=== PATIENT | male | born 1955 | race Caucasian/White ===

== ENCOUNTER 2017-03-18 23:55 | Observation (INO) | payer OTHER ==
--- NOTE | 2017-03-19 00:11 | CPEKG ---
Heart Rate: 117 RR Interval: 513 P-R Interval: 188 QRSD Interval: 100 QT Interval: 292 QTC Interval: 408 P Richmond: 79 QRS Richmond: 48 T Wave Richmond: 52 EKG Severity - ABNORMAL ECG - EKG Impression: SINUS TACHYCARDIA EKG Impression: RIGHT ATRIAL ABNORMALITY EKG Impression: CONSIDER RIGHT VENTRICULAR HYPERTROPHY Electronically Signed By: Enma Miller 19-Mar-2017 08:03:58
[2017-03-19] MEDS ORDERED: ONDANSETRON 4 MG/2 ML VIAL IVP ONE (00:15)
[2017-03-19] MEDS ORDERED: ONDANSETRON 4 MG/2 ML VIAL ONE (00:15)
[2017-03-19] MEDS ORDERED: NITROGLYCERIN 0.4 MG BTL SL ONE (00:26)
[2017-03-19] MEDS ORDERED: ASPIRIN 81 MG CHEWABLE TAB ONE (00:27)
[2017-03-19] MEDS ORDERED: NS 500 ML IV ONE (00:27)
[2017-03-19] MEDS ORDERED: ASPIRIN 81 MG CHEWABLE TAB PO ONE (00:27)
--- NOTE | 2017-03-19 00:31 | EDPHY ---
H & P Stated Complaint: c/o cp/n/sob x 2 hrs Time Seen by Provider: 03/19/17 00:15 HPI/ROS: HPI The patient presents with chest pain which began about 2 hours ago while watching television suddenly. The pain feels like a "hot burning coal" is sitting on his left chest. It has been constant ever since. He feels short of breath. He feels lightheaded when he stands. He has had several episodes of vomiting. He initially thought the pain was indigestion, however it became more severe and he became concerned. He does suffer from chronic pain of his lumbar spine. He is followed by a pain specialist, he has not any changes in his pain medication. He has been able to take all of it. REVIEW OF SYSTEMS Constitutional: No fever, no chills. Eyes: No discharge. ENT: No sore throat. Cardiovascular: Positive for chest pain, no palpitations. Respiratory: No cough, no shortness of breath. Gastrointestinal: No abdominal pain, no vomiting. Genitourinary: No hematuria. Musculoskeletal: No back pain. Skin: No rashes. Neurological: No headache. PMHx: History of SVT on verapamil, hypertension, history of intractable pain from lower back injury Soc Hx: Lives at home with his , no alcohol or drug use PHYSICAL General Appearance: Alert, uncomfortable appearing Eyes: Pupils equal and round no pallor or injection ENT, Mouth: Mucous membranes moist Respiratory: There are no retractions, lungs are clear to auscultation Cardiovascular: Tachycardic rate with regular rhythm Gastrointestinal: Abdomen is soft and non-tender, no masses, bowel sounds normal Neurological: A&O, moves all extremities Skin: Warm and dry, no rashes Musculoskeletal: Neck is supple non tender Extremities: symmetrical, full range of motion Psychiatric: Patient is oriented X 3, there is no agitation Source: Patient Exam Limitations: No limitations - Personal History Tetanus Vaccine Date: unsure - Medical/Surgical History Hx Asthma: No Hx Chronic Respiratory Disease: No Hx Diabetes: No Hx Cardiac Disease: Yes Hx Renal Disease: No Hx Cirrhosis: No Hx Alcoholism: No Hx HIV/AIDS: No Hx Splenectomy or Spleen Trauma: No Other PMH: HTN, back surgery, chronic lumbar spine disease, history of SVT, emphysema - Social History Smoking Status: Former smoker Constitutional: Initial Vital Signs Temperature (C) 37 C 03/18/17 23:59 Heart Rate 130 H 03/18/17 23:59 Respiratory Rate 20 03/18/17 23:59 Blood Pressure 180/117 H 03/18/17 23:59 O2 Sat (%) 98 03/18/17 23:59 O2 Delivery Mode Room Air Allergies/Adverse Reactions: No Known Allergies Allergy (Verified 03/19/17 00:01) Home Medications: Medication Instructions Recorded Carisoprodol [SOMA] 350 mg PO TID 01/16/11 Diazepam [Valium] 20 mg PO BID 01/16/11 Benazepril HCl [Lotensin (*)] 20 mg PO HS 01/10/14 HYDROcodone/APAP 10325 [[place] 2 tab PO TID 01/10/14 10325 (*)] Lubiprostone [Amitiza 24 mcg (*)] 24 mcg PO BID 01/10/14 Meloxicam [Mobic 15 mg] 15 mg PO DAILY 01/10/14 Nortriptyline HCl [Pamelor 25 mg 50 mg PO HS 01/10/14 (*)] Verapamil HCl [Verelan Pm] 300 mg PO HS 01/10/14 amLODIPine BESYLATE [Norvasc 10 mg 10 mg PO DAILY 01/10/14 (*)] morphINE SR [Ms Contin/Oramorph 100 mg PO TID 01/10/14 100 mg (*)] Medical Decision Making - Diagnostics EKG Interpretation: EKG: Complete interpretation has been separately recorded in the [facility] archive. Summary impression: Sinus tachycardia, rate 117, normal axis, no ST segment elevation Imaging Results: Imaging Impressions Chest X-Ray 03/19/17 00:27 Impression: Nothing acute identified. Differential Diagnosis: This is a 61-year-old man with hypertension and history of SVT who presents with 2 hours of chest pain which began at rest associated with shortness of breath, vomiting, dizziness. On exam, he is tachycardic and hypertensive, somewhat uncomfortable appearing Differential diagnosis includes ACS, PE, aortic dissection, GERD. In the emergency room, the patient was given nitroglycerin sublingually with improvement and chest pain. Labs were checked including troponin and D-dimer and were unremarkable, given his persistent hypertension, CT scan of his chest was performed. This was to evaluate for PE or aortic dissection. This was negative. Given the severity of his symptoms and his persistent tachycardia and hypertension, I plan to admit him to the hospitalist service. I will also order him metoprolol for blood pressure and heart rate control. I discussed the case with the hospitalist Dr. Way who will admit the patient. - Data Points Laboratory Results: Laboratory Results 03/19/17 00:08 03/19/17 00:08 03/19/17 03/19/17 03/19/17 00:27 00:27 00:08 WBC RBC Hgb Hct MCV MCH MCHC RDW Plt Count MPV Neut % (Auto) Lymph % (Auto) Bucks % (Auto) Eos % (Auto) Baso % (Auto) Nucleat RBC Rel Count Absolute Neuts (auto) Absolute Lymphs (auto) Absolute Monos (auto) Absolute Eos (auto) Absolute Basos (auto) Absolute Nucleated RBC Immature Gran % Immature Gran # PT INR D-Dimer Cancelled Sodium Potassium Chloride Carbon Dioxide Anion Gap BUN Creatinine Estimated GFR Glucose Hemoglobin A1c Pending Estim Average Glucose Pending Calcium Phosphorus Troponin I NT-Pro-B Natriuret Pep Cancelled 03/19/17 03/19/17 03/19/17 00:08 00:08 00:08 WBC 14.62 10^3/uL H 10^3/uL (3.80-9.50) RBC 5.27 10^6/uL 10^6/uL (4.40-6.38) Hgb 15.9 g/dL g/dL (13.7-17.5) Hct 45.6 % % (40.0-51.0) MCV 86.5 fL fL (81.5-99.8) MCH 30.2 pg pg (27.9-34.1) MCHC 34.9 g/dL g/dL (32.4-36.7) RDW 13.0 % % (11.5-15.2) Plt Count 417 10^3/uL H 10^3/uL (150-400) MPV 9.2 fL fL (8.7-11.7) Neut % (Auto) 68.4 % % (39.3-74.2) Lymph % (Auto) 22.2 % % (15.0-45.0) Bucks % (Auto) 6.8 % % (4.5-13.0) Eos % (Auto) 1.8 % % (0.6-7.6) Baso % (Auto) 0.5 % % (0.3-1.7) Nucleat RBC Rel Count 0.0 % % (0.0-0.2) Absolute Neuts (auto) 9.99 10^3/uL H 10^3/uL (1.70-6.50) Absolute Lymphs (auto) 3.25 10^3/uL H 10^3/uL (1.00-3.00) Absolute Monos (auto) 0.99 10^3/uL H 10^3/uL (0.30-0.80) Absolute Eos (auto) 0.27 10^3/uL 10^3/uL (0.03-0.40) Absolute Basos (auto) 0.07 10^3/uL 10^3/uL (0.02-0.10) Absolute Nucleated RBC 0.00 10^3/uL 10^3/uL (0-0.01) Immature Gran % 0.3 % % (0.0-1.1) Immature Gran # 0.05 10^3/uL 10^3/uL (0.00-0.10) PT 12.4 SEC SEC (12.0-15.0) INR 0.93 (0.83-1.16) D-Dimer 0.44 ug/mLFEU ug/mLFEU (0.00-0.50) Sodium 141 mEq/L mEq/L (134-144) Potassium 3.6 mEq/L mEq/L (3.5-5.2) Chloride 101 mEq/L mEq/L (97-110) Carbon Dioxide 23 mEq/l mEq/l (22-31) Anion Gap 17 mEq/L H mEq/L (8-16) BUN 18 mg/dL mg/dL (7-23) Creatinine 1.2 mg/dL mg/dL (0.7-1.3) Estimated GFR > 60 Glucose 158 mg/dL H mg/dL (70-100) Hemoglobin A1c Estim Average Glucose Calcium 10.7 mg/dL H mg/dL (8.5-10.4) Phosphorus 3.4 mg/dL mg/dL (2.5-4.5) Troponin I < 0.012 ng/mL ng/mL (0-0.034) NT-Pro-B Natriuret Pep 77 pg/mL pg/mL (0-125) Medications Given: Discontinued Medications Al Hydroxide/Mg Hydroxide (Maalox Susp) 30 ml PO EDNOW ONE Stop: 03/19/17 02:29 Last Admin: 03/19/17 02:41 Dose: 30 ml Aspirin (Aspirin) 324 mg PO EDNOW ONE Stop: 03/19/17 00:28 Last Admin: 03/19/17 00:33 Dose: 324 mg Hydromorphone HCl (Dilaudid) 0.5 mg IVP EDNOW ONE Stop: 03/19/17 02:33 Last Admin: 03/19/17 02:42 Dose: 0.5 mg Sodium Chloride (Ns) 500 mls @ 1,000 mls/hr IV ONCE ONE PRN Reason: Protocol Stop: 03/19/17 00:56 Last Admin: 03/19/17 00:33 Dose: 500 mls Lidocaine (Lidocaine 2% Viscous) 5 ml PO EDNOW ONE Stop: 03/19/17 02:30 Last Admin: 03/19/17 02:41 Dose: 5 ml Metoprolol Tartrate (Lopressor Injection) 5 mg IVP Q5M KAMI Stop: 03/19/17 01:56 Last Admin: 03/19/17 02:30 Dose: 5 mg Nitroglycerin (Nitrostat) 0.4 mg SL Q5M PRN PRN Reason: Chest Pain Stop: 03/19/17 00:38 Last Admin: 03/19/17 00:44 Dose: 0.4 mg Ondansetron HCl (Zofran) 4 mg IVP EDNOW ONE Stop: 03/19/17 00:16 Last Admin: 03/19/17 00:21 Dose: 4 mg Promethazine HCl (Phenergan) 12.5 mg IVP EDNOW ONE Stop: 03/19/17 01:28 Last Admin: 03/19/17 01:35 Dose: 12.5 mg Departure - Departure Disposition: [facility] Acute Clinical Impression: HTN (hypertension), Tachycardia, Chest pain Condition: Fair
[2017-03-19 00:33] LABS: % IMMATURE GRANULYOCYTES 0.3 % (0.0-1.1); ABSOLUTE IMMATURE GRANULOCYTES 0.05 10^3/uL (0.00-0.10); ADD DIFF? NO; ADD MORPH? NO; ADD SCAN? NO; ATYPICAL LYMPHOCYTE FLAG 0 (0-99); FRAGMENT RBC FLAG 0 (0-99); HEMATOCRIT 45.6 % (40.0-51.0); HEMOGLOBIN 15.9 g/dL (13.7-17.5); LEFT SHIFT FLG 0 (0-99); LIPEMIA HEMOLYSIS FLAG 90 (0-99); MEAN CELL HEMOGLOBIN 30.2 pg (27.9-34.1); MEAN CELL HEMOGLOBIN CONCENTR. 34.9 g/dL (32.4-36.7); MEAN CELL VOLUME 86.5 fL (81.5-99.8); MEAN PLATELET VOLUME 9.2 fL (8.7-11.7); PLATELET CLUMPS FLAG 10 (0-99); PLATELET COUNT 417 10^3/uL (150-400); RED BLOOD CELL COUNT 5.27 10^6/uL (4.40-6.38)
[2017-03-19] MEDS: NITROGLYCERIN 0.4 MG BTL SL PRN ×2 (00:34→00:44)
[2017-03-19] MEDS ORDERED: IOPAMIDOL (ISOVUE 370) 100 ML BTL IV ONE (00:37)
[2017-03-19 00:40] LABS: ANION GAP 17 mEq/L (8-16); CALCIUM 10.7 mg/dL (8.5-10.4); CARBON DIOXIDE 23 mEq/l (22-31); CHLORIDE 101 mEq/L (97-110); CREATININE 1.2 mg/dL (0.7-1.3); GLOMERULAR FILTRATION RATE > 60; GLUCOSE 158 mg/dL (70-100); POTASSIUM 3.6 mEq/L (3.5-5.2); SODIUM 141 mEq/L (134-144)
[2017-03-19 00:51] LABS: TROPONIN I < 0.012 ng/mL (0-0.034)
[2017-03-19 01:11] LABS: INR 0.93 (0.83-1.16); PROTIME(PATIENT) 12.4 SEC (12.0-15.0)
[2017-03-19] MEDS ORDERED: PROMETHAZINE HCL 25 MG/ML INJ IVP ONE (01:27)
[2017-03-19] MEDS ORDERED: NS 50 ML BAG IV ONE (01:30)
[2017-03-19] MEDS: METOPROLOL TARTRATE 5 MG/5 ML INJ IVP SCH ×4 (01:55→02:30)
[2017-03-19 02:13] LABS: COLOR PALE YELLOW; LEUKOCYTE ESTERASE,URINE NEGATIVE (NEGATIVE); NITRITE,URINE NEGATIVE (NEGATIVE)
[2017-03-19] MEDS ORDERED: MAG HYDROX/AL HYDROX/SIMETH 30 ML UDCUP PO ONE (02:28)
[2017-03-19] MEDS ORDERED: LIDOCAINE 2% VISCOUS 15 ML UDCUP PO ONE (02:29)
[2017-03-19] MEDS ORDERED: HYDROmorphONE/DILAUDID 1 MG/ML SYR IVP SCH (02:30)
[2017-03-19] MEDS ORDERED: HYDROmorphONE/DILAUDID 1 MG/ML SYR IVP ONE (02:32)
[2017-03-19] MEDS ORDERED: LACTULOSE 20 GM/30 ML UDCUP PO PRN (02:34)
[2017-03-19] MEDS ORDERED: POLYETHYLENE GLYCOL 3350 17 GM PKT PO PRN (02:34)
[2017-03-19] MEDS ORDERED: MAGNESIUM HYDROXIDE 30 ML UDCUP PO PRN (02:34)
[2017-03-19] MEDS ORDERED: BISACODYL 10 MG SUPP PR PRN (02:34)
[2017-03-19] MEDS ORDERED: HYDROmorphONE/DILAUDID 1 MG/ML SYR ONE (02:35)
[2017-03-19] MEDS ORDERED: MAG HYDROX/AL HYDROX/SIMETH 30 ML UDCUP ONE (02:36)
[2017-03-19] MEDS ORDERED: LIDOCAINE 2% VISCOUS 15 ML UDCUP ONE (02:36)
[2017-03-19] MEDS ORDERED: NS 1,000 ML IV SCH (02:45)
[2017-03-19] MEDS ORDERED: PROMETHAZINE HCL 25 MG/ML INJ IVP PRN (02:49)
[2017-03-19] MEDS ORDERED: HYDROmorphONE/DILAUDID 2 MG/ML INJ IVP PRN (03:15)
[2017-03-19] MEDS ORDERED: hydrALAZINE 20 MG/ML VIAL IVP PRN (03:30)
--- NOTE | 2017-03-19 03:39 | GHP ---
[f rep st] HISTORY AND PHYSICAL DATE OF ADMISSION: 03/19/2017 CHIEF COMPLAINT: Chest pain, hypertensive urgency. Primary pain doctor at [facility]. HISTORY OF PRESENT ILLNESS: a 61-year-old male with chronic neuropathic myofascial pain syndrome secondary to degenerative disk disease with acute chest pain. He and ate burritos for dinner this evening and then he went to bed. He awoke approximately 10 p.m. with substernal/left-sided chest pain that felt like severe indigestion. Then had episode of nonbloody emesis. He took a couple Tums and Reglan without relief. Also had a headache and numbness in his lips and both hands. No sweats or SOB. No vision changes or weakness. Now chest pain free after dosed nitro in the ER. He states his back pain is currently 9/10, normally 6-7. Has bouts of vomiting when pain so severe at home 2-3x/week relieved with Zofran. Concern today was chest pain and high blood pressure. BP at home normally runs 140/70s. Sates compliance with Norvasc and benazepril. REVIEW OF SYSTEMS: I completed a 10-point review of systems, negative except as noted in HPI. PAST MEDICAL HISTORY: Chronic back pain as stated above, hypertension, SVT, emphysema, constipation, hyperlipidemia, vitamin D deficiency. PAST SURGICAL HISTORY: Laminectomy, inguinal hernia, right knee. FAMILY HISTORY: Hypertension. No stroke or heart attack. SOCIAL HISTORY: Lives with his in [place]. Used to smoke 2-3 6 cigarettes daily on and off for a few years. Was smoking marijuana regularly, but stopped on Friday as part of his pain contract. ALLERGIES: None. MEDICATIONS: At home, MS Contin 100 mg b.i.d., Norvasc 10, verapamil 300 mg q.h.s., Nortriptyline 50 mg q.h.s., Mobic 15 mg daily, Dilaudid 4 mg q.6 hours p.r.n., Zanaflex 4 mg t.i.d., Zofran as needed. PHYSICAL EXAMINATION: VITAL SIGNS: Temperature 37, blood pressure 180/117, heart rate 130s, now 103 after 10 mg of IV metoprolol, respirations 16, 98% on room air. GENERAL: Thin male, lying in bed, very uncomfortable. HEENT: PERRLA. EOMI. Oropharynx clear. CV: Regular, tachy. No murmurs, gallops, or rubs. No reproducible chest pain. No lower extremity edema or elevated JVD. LUNGS: Clear. No crackles or wheezing. ABDOMEN: Mild epigastric tenderness with palpation. No rebound or guarding. : No suprapubic tenderness. MUSCULOSKELETAL: Severe scoliosis. No tenderness to palpation over spine, 5/5 upper and lower extremity strength. NEURO: 2 through 12 intact. No focal deficits. Normal sensation to touch. PSYCH: Alert and oriented x3. LABORATORY DATA: WBC is 14 (ranging from 10-16 for the past 3 years), hemoglobin 15, hematocrit 45, platelets 417. Sodium 141, potassium 3.6, chloride 101, carbon dioxide 23, BUN 18, creatinine is 1.2. Anion gap is 17, glucose 158, calcium 10.7, troponin less than 0.012. IMAGING: Chest x-ray, personally reviewed by me, no evidence of opacity or edema. CTA no PE, no dissection. EKG, personally reviewed by me, sinus tachycardia, prominent P waves. ASSESSMENT AND PLAN: 1. Acute chest pain: differential includes ACS, musculoskeletal,indigestion, PE, or dissection. CTA negative for pulmonary embolism or dissection. Initial troponin and EKG are negative for ischemia. His personal risks are HTN and tobacco, no family history. Will trial a GI cocktail for indigestion. Monitor in the PCU on telemetry with repeat troponin and EKG. Check A1c and lipids. Currently no CP. Pain may been driven by elevated BP. Consider nuclear stress given back pain; reasonable to do outpatient if repeat trop/EKG stable. 2. Hypertensive urgency: may be triggered from back pain since unclear if he kept down dose of MS Contin this evening. No e/o end-organ damage. Telemetry, repeat EKG and troponin. Trial pain medications. Resume home BP meds and PRN IV hydralazine. 3. History of supraventricular tachycardia: resume home verapamil. 4. Chronic back pain: followed by [facility]. Recently had been a change in his medications and stopped smoking marijuana last week as part of his pain contract. Has not been on benzos for months so not withdrawing. 5. Constipation: Had a bowel movement today. 6. Intermittent nausea: occurs 2-3 times a week with severe pain. Could be related to chronic marijuana use. Provide p.r.n. IV antiemetics 7. Abdominal pain: check Lipase, LFT. May be due to retching. 7. Diet. N.p.o. for possible stress. 8. Deep venous thrombosis prophylaxis Lovenox. 9. Disposition: Patient warrants observation admission given acute onset of chest pain concerning for possible acute coronary syndrome. Will monitor on telemetry and possible stress test in the morning. /[id number]/MODL MTDD
[2017-03-19] MEDS ORDERED: HYDROmorphONE/DILAUDID 4 MG TAB PO PRN ×3 (06:00→12:57)
[2017-03-19] MEDS ORDERED: morphINE SR 100 MG TAB PO SCH ×3 (06:00→21:00)
[2017-03-19 06:04] LABS: HEMATOCRIT 41.6 % (40.0-51.0); HEMOGLOBIN 15.1 g/dL (13.7-17.5); MEAN CELL HEMOGLOBIN 30.6 pg (27.9-34.1); MEAN CELL HEMOGLOBIN CONCENTR. 36.3 g/dL (32.4-36.7); MEAN CELL VOLUME 84.4 fL (81.5-99.8); RED BLOOD CELL COUNT 4.93 10^6/uL (4.40-6.38); RED CELL DISTRIBUTION WIDTH 12.7 % (11.5-15.2)
[2017-03-19 06:24] LABS: ALANINE AMINOTRANSFERASE 31 IU/L (21-72); ALBUMIN 4.6 g/dL (3.5-5.0); ALKALINE PHOSPHATASE 140 IU/L (38-126); ANION GAP 16 mEq/L (8-16); ASPARTATE AMINOTRANSFERASE 24 IU/L (17-59); BILIRUBIN,TOTAL 0.8 mg/dL (0.1-1.4); BILIRUBIN-CONJUGATED 0.5 mg/dL (0.0-0.5); BILIRUBIN-UNCONJUGATED 0.3 mg/dL (0.0-1.1); CARBON DIOXIDE 20 mEq/l (22-31); CHLORIDE 102 mEq/L (97-110); CHOLESTEROL 168 mg/dL (140-220); CHOLESTEROL/HDL RATIO 3.11 RATIO (1.00-4.97); GLOMERULAR FILTRATION RATE > 60; GLUCOSE 175 mg/dL (70-100); HIGH DENSITY LIPOPROTEIN 54 mg/dL (40-65); LDL/HDL RATIO 1.94 RATIO (1.00-3.64); LOW DENSITY LIPOPROTEIN 105 mg/dL (80-100); NON-HIGH DENSITY LIPOPROTEIN 114 mg/dL (90-129); POTASSIUM 3.7 mEq/L (3.5-5.2); SODIUM 138 mEq/L (134-144); TOTAL PROTEIN 7.7 g/dL (6.3-8.2); TRIGLYCERIDE 45 mg/dL (40-150); VERY LOW DENSITY LIPOPROTEINS 9 mg/dL (8-25)
[2017-03-19 06:35] LABS: TROPONIN I < 0.012 ng/mL (0-0.034)
[2017-03-19] MEDS ORDERED: BENAZEPRIL HCL 20 MG TAB PO SCH (09:00)
[2017-03-19] MEDS ORDERED: SENNOSIDES/DOCUSATE SODIUM TAB PO SCH (09:00)
--- NOTE | 2017-03-19 09:16 | CPEKG ---
Heart Rate: 115 RR Interval: 522 P-R Interval: 176 QRSD Interval: 102 QT Interval: 308 QTC Interval: 426 P [place]: 73 QRS [place]: 50 T Wave [place]: 17 EKG Severity - ABNORMAL ECG - EKG Impression: SINUS TACHYCARDIA EKG Impression: VENTRICULAR PREMATURE COMPLEX EKG Impression: NONSPECIFIC T ABNORMALITIES, ANTERIOR LEADS Electronically Signed By: Francois Decker 19-Mar-2017 16:43:16
[2017-03-19 11:47] VITALS: BP 121/84; PULSE 99; RESP 22; TEMP 99; O2SAT 93
[2017-03-19 12:28] LABS: HEMOGLOBIN A1C 5.6 % (4.0-6.0)
--- NOTE | 2017-03-19 14:30 | GDS ---
[f rep st] DISCHARGE SUMMARY DISCHARGE DIAGNOSES: 1. Chest burning thought secondary to reflux from burrito misadventure. 2. Hypertensive urgency. 3. Chronic pain. 4. Hypertension. 5. History of supraventricular tachycardia. HISTORY OF PRESENT ILLNESS: Please see admission history and physical by Dr. Hannah Way. The p shani presented with some chest burning, nausea, and vomiting. He has chronic pain, and when his p ain gets bad, he does have some vomiting as well. He took Tums and Reglan without relief. It did r espond to nitroglycerin in the emergency department. He had an EKG on presentation that showed sinu s tachycardia, but otherwise, no ischemic changes, and this is stable. He missed his verapamil last evening because he vomited it up. He had negative troponins x2. No events on telemetry. He had a CTA showing no evidence of aortic dissection, minimal atherosclerotic disease in the aorta, no pulm onary embolism, and clear lungs. The patient's blood pressure is normalized in the 120s over 80s this morning. His heart rate is bel ow 100. He is back on his medicines and tolerating, and I have established an outpatient stress martha t with [facility] on March 25. Discharge medications are unchanged. /[id number]/MODL
[2017-03-19] MEDS ORDERED: VERAPAMIL HCL 300 MG PO SCH ×2 (21:00)
[2017-03-19] MEDS ORDERED: NORTRIPTYLINE HCL 25 MG CAP PO SCH (21:00)
[2017-03-20] MEDS ORDERED: Meloxicam [Mobic 15 Mg] 15 MG PO SCH (09:00)
[2017-03-20] MEDS ORDERED: PANTOPRAZOLE SODIUM 40 MG TAB PO SCH (09:00)
[2017-03-20] MEDS ORDERED: NON-FORMULARY NEW DRUG (Meloxicam [Mobic 15 Mg] 15 MG) PO SCH (09:00)
[2017-03-20] MEDS ORDERED: MULTIVITAMINS 1 EACH TAB PO SCH (09:00)
== END 2017-03-19 14:26 | disposition home or self-care (01) ==
LOC: F2W 03-19 01:42
PROVIDERS: ADMIT Internal Medicine; ATTEND Internal Medicine
DX: K21.9 Gastro-esophageal reflux disease without esophagitis (principal); R07.89 Other chest pain; I16.0 Hypertensive urgency; M79.1 Myalgia; M54.5 Low back pain; Z87.891 Personal history of nicotine dependence
CPT/HCPCS: 71010; 71275; 93005; 96361; 96374; 96375; 99285; G0378; J0360; J1170; J2405; J2550; Q9967

== ENCOUNTER → 2017-04-14 | Outpatient (CLI) | payer OTHER | LOC: FIMAGING 08:15 | PROVIDERS: ATTEND Neurological Surgery | DX: M48.06 Spinal stenosis, lumbar region (principal); M51.26 Other intervertebral disc displacement, lumbar region; M51.27 Other intervertebral disc displacement, lumbosacral region; M41.86 Other forms of scoliosis, lumbar region; M46.96 Unspecified inflammatory spondylopathy, lumbar region; M46.97 Unspecified inflammatory spondylopathy, lumbosacral region ==

== ENCOUNTER → 2017-04-21 | Outpatient (CLI) | payer OTHER | LOC: FIMAGING 18:37 | PROVIDERS: ATTEND Physician Assistant | DX: M51.36 Other intervertebral disc degeneration, lumbar region (principal); M43.16 Spondylolisthesis, lumbar region; M53.2X6 Spinal instabilities, lumbar region ==

== ENCOUNTER → 2017-07-18 | Outpatient (CLI) | payer OTHER | LOC: FIMAGING 13:20 | PROVIDERS: ATTEND Pain Medicine Interventional Pain Medicine | DX: G89.4 Chronic pain syndrome (principal); M85.88 Other specified disorders of bone density and structure, other site ==

== ENCOUNTER 2017-12-17 09:32 | Day surgery (SDC) | payer OTHER ==
--- NOTE | 2017-12-17 09:28 | PDANEPAE ---
ANE History of Present Illness Spinal cord stimulator placement for chronic low back and B lower extremity pain. ANE Past Medical History - Cardiovascular History Hx Hypertension: Yes Hx Arrhythmias: Yes Hx Chest Pain: No Hx Coronary Artery / Peripheral Vascular Disease: No Hx CHF / Valvular Disease: No Hx Palpitations: No Cardiovascular History Comment: SVTs - Pulmonary History Hx COPD: No Hx Asthma/Reactive Airway Disease: No Hx Recent Upper Respiratory Infection: No Hx Oxygen in Use at Home: No Hx Sleep Apnea: No Sleep Apnea Screening Result - Last Documented: Positive - Neurologic History Hx Cerebrovascular Accident: No Hx Seizures: No Hx Dementia: No - Endocrine History Hx Diabetes: No Obesity: mild - Renal History Hx Renal Disorders: No - Liver History Hx Hepatic Disorders: No - Neurological & Psychiatric Hx Hx Neurological and Psychiatric Disorders: No - Cancer History Hx Cancer: No - Congenital Disorder History Hx Congenital Disorders: No - GI History GERD: no Hx Gastrointestinal Disorders: No - Other Health History Other Health History: NEG - Chronic Pain History Chronic Pain: Yes (BACK PAIN & KNEES, on chronic opioids) - Surgical History Prior Surgeries: SPINAL LAMINECTOMY LUMBAR & DISCECTOMY. HERNIA REPAIR. KNEE SCOPE L ANE Review of Systems Review of Systems: - Exercise capacity METS (RN): 4 METS ANE Patient History - Allergies Allergies/Adverse Reactions: No Known Allergies Allergy (Verified 12/03/17 11:24) - Home Medications Home Medications: Meloxicam [Mobic 15 mg] 15 mg PO DAILY 01/10/14 [Last Taken 12/10/17] Nortriptyline HCl [Pamelor 25 mg (*)] 50 mg PO BID 01/10/14 [Last Taken 12/07/17 ] Verapamil HCl [Verelan Pm] 300 mg PO HS 01/10/14 [Last Taken 12/16/17 22:00] amLODIPine BESYLATE [Norvasc 10 mg (*)] 10 mg PO DAILY 01/10/14 [Last Taken 12/31 06:00] morphINE SR [Ms Contin/Oramorph 100 mg (*)] 100 mg PO BID 01/10/14 [Last Taken 12/17/17 06:00] Benazepril HCl [Lotensin] 40 mg PO HS 03/19/17 [Last Taken 12/16/17 22:00] HYDROmorphone HCL [Dilaudid 4 mg (*)] 4 mg PO QID PRN 03/19/17 [Last Taken 12/16 18:00] Multivitamins [Multivitamin (*)] 1 each PO DAILY 03/19/17 [Last Taken 12/16/17] tiZANidine HCL [Zanaflex] 4 mg PO QID 03/19/17 [Last Taken 12/17/17 06:00] Zofran 12/03/17 [Last Taken 12/17/17 06:00] Ventolin Hfa Inhaler 12/17/17 [Last Taken 12/17/17 06:00] - Anes Hx Anes Hx: post operative nausea - Smoking Hx Smoking Status: Former smoker (intermittent smoker, 2-3 cigarettes/day for 5 years at a time) Marijuana use: No - Alcohol Use Alcohol Use: Other (1-2 drinks/day) - Family Anes Hx Family Hx Anesthesia Complications: NEG ANE Labs/Vital Signs - Vital Signs Height: 185.42 cm Weight: 90.718 kg ANE Physical Exam - Airway Neck exam: FROM Mallampati Score: Class 1 Mouth exam: poor dentition - Pulmonary Pulmonary: clear to auscultation - Cardiovascular Cardiovascular: regular rate and rhythym - ASA Status ASA Status: III ANE Anesthesia Plan Anesthesia Plan: general endotracheal anesthesia
[2017-12-17] MEDS ORDERED: ACETAMINOPHEN 500 MG TAB PO ONE (09:46)
[2017-12-17] MEDS ORDERED: ceFAZolin 2 GM/SWFI 2 GM/20 ML SYR IVP ONE (09:46)
[2017-12-17] MEDS ORDERED: LR 1,000 ML IV ONE (09:47)
[2017-12-17] MEDS ORDERED: LIDOCAINE 1% 2 ML INJ ID PRN (09:47)
[2017-12-17] MEDS ORDERED: SURGIFLO MATRIX KIT WITH THROMBIN 8ml TP ONE (10:26)
[2017-12-17] MEDS ORDERED: CHLORHEXIDINE GLUC HIBICLENS 118 ML BTL TP ONE (10:28)
[2017-12-17] MEDS ORDERED: THROMBIN (BOVINE) 5,000 UNIT VIAL TP ONE (10:28)
[2017-12-17] MEDS ORDERED: LIDOCAINE 1% 300 MG/30 ML SDV ONE (10:28)
[2017-12-17] MEDS ORDERED: BUPIVACAINE 0.25% 30 ML SDV ONE (10:28)
[2017-12-17] MEDS ORDERED: BACITRACIN 50,000 UNITS/10 ML SYR IRR ONE ×2 (10:29→13:16)
[2017-12-17] MEDS ORDERED: MIDAZOLAM 2 MG/2 ML VIAL ONE (10:46)
--- NOTE | 2017-12-17 10:49 | PDHPUP ---
History & Physical Update H&P update statement: This history and physical update is based on an assessment of the patient which was completed after admission or registration (within 24 hours), but prior to the surgery/procedure. H&P update: H&P reviewed & patient examined, no change in patient's condition since H&P completed
[2017-12-17] MEDS ORDERED: MIDAZOLAM 2 MG/2 ML VIAL IVP ONE (10:50)
[2017-12-17] MEDS ORDERED: PROPOFOL/EMULSION 500 MG/50 ML BOTTLE IV ONE (10:58)
[2017-12-17] MEDS ORDERED: fentaNYL 250 MCG/5 ML INJ ONE (10:58)
[2017-12-17] MEDS ORDERED: KETAMINE 200 MG/20 ML VIAL ONE (10:58)
[2017-12-17] MEDS ORDERED: ROCURONIUM 50 MG/5 ML VIAL ONE ×2 (10:59)
[2017-12-17] MEDS ORDERED: PHENYLEPHRINE HCL 100 MCG/ML SYR ONE (11:20)
[2017-12-17] MEDS ORDERED: PHENYLEPHRINE 10 MG/ML SDV ONE (11:47)
[2017-12-17] MEDS ORDERED: ONDANSETRON 4 MG/2 ML VIAL ONE (12:30)
[2017-12-17] MEDS ORDERED: PROPOFOL 200 MG/20 ML VIAL ONE (13:09)
[2017-12-17] MEDS ORDERED: HYDROmorphONE/DILAUDID 1 MG/ML INJ IVP PRN (13:30)
[2017-12-17] MEDS ORDERED: ONDANSETRON 4 MG/2 ML VIAL IVP PRN (13:30)
[2017-12-17] MEDS ORDERED: NALOXONE HCL 0.4 MG/ML INJ IVP PRN (13:30)
[2017-12-17] MEDS ORDERED: METHOCARBAMOL 750 MG TAB PO PRN (13:39)
[2017-12-17] MEDS ORDERED: HYDROmorphONE/DILAUDID 4 MG TAB PO PRN (13:39)
--- NOTE | 2017-12-17 14:04 | POSTOPPROG ---
Post Op Note Date of Operation: 12/17/17 Surgeon: Camryn Dennis Jeeper Operator: Enma Diaz PA-C Anesthesiologist: Dr. Shivam Ramirez Anesthesia: GET(General Endotracheal) Pre-op Diagnosis: Chronic pain Post-op Diagnosis: Chronic pain Procedure: Thoracic laminectomy for SCS paddel lead implant Inf/Abcess present in the surg proc area at time of surgery?: No Depth: Deep Incisional (Fascial) EBL: 50-100 Plan Plan: 62 yo male s/p thoracic laminectomy for SCS paddle lead implant with generator to the lefthip - neuro checks - pain control - advance diet as tolerated - dc home today Exam Patient see in recovery. Awake. Alert. Following commands LE strength full at 5/5 Incisions with dressings c/d/i
[2017-12-17] MEDS ORDERED: HYDROmorphONE/DILAUDID 2 MG TAB ONE (14:25)
[2017-12-17] MEDS ORDERED: HYDROmorphONE/DILAUDID 2 MG TAB PO ONE (14:30)
[2017-12-17] MEDS ORDERED: fentaNYL 100 MCG/2 ML INJ ONE (14:45)
[2017-12-17] MEDS: fentaNYL 100 MCG/2 ML INJ IVP PRN ×2 (14:47→14:59)
--- NOTE | 2017-12-17 14:49 | POSTANESTH ---
Post Anesthetic Evaluation Cardiovascular Status: Similar to Pre-Op Cond Respiratory Status: Normal, Stable Level of Consciousness/Mental Status: Can Participate in Eval Pain Control: Adequate, Prn Tx Ordered Nausea/Vomiting Control: Adequate, Prn Tx Ordered Complications Possibly Related to Anesthesia: None Noted
--- NOTE | 2017-12-17 14:58 | GOP ---
[f rep st] OPERATIVE REPORT DATE OF OPERATION: 12/17/2017 SURGEON: Camryn Dennis DO NEUROSURGEON: Camryn Dennis D.O. WALNUT DEHYDRATOR OPERATOR: DANIEL Kellogg. PREOPERATIVE DIAGNOSIS: 1. Chronic pain syndrome. 2. Failed back syndrome. POSTOPERATIVE DIAGNOSIS: 1. Chronic pain syndrome. 2. Failed back syndrome. PROCEDURE PERFORMED: 1. Thoracic laminectomy T8-9, 9-10, 10-11, placement of Nevro spinal cord stimulator paddle lead at T8-9-10, placement of generator to left hip. 2. Impedances. FINDINGS: SPECIMENS: None. ESTIMATED BLOOD LOSS: 50 mL. INDICATIONS: This is a 62-year-old male, who had a successful Nevro spinal cord stimulator percutane ous trial, although they had difficulty accessing the epidural space. He elected to move forward wit h paddle lead placement. DESCRIPTION OF PROCEDURE: He was identified, consented. Marked his belt line before he came back; s ites were marked. Was prepped and draped in the usual sterile fashion. Counting up from the sacrum, the T12 was marked and then the T10-11 for a 10-11 laminectomy. He was anesthetized with 0.25% Brendon henry with epinephrine. Incision at the thoracic spine was made with a 10 blade. Hemostasis was obta ined with Bovie and bipolar cautery, dissecting down onto the laminae of T10 and T11. Placed a Shado w-Line retractor. Took an x-ray verifying our levels. Using the Leksell, removed the interspinous l igament and spinous process at T10-11, and then accessed the space with a high-speed drill, opening t he ligamentum flavum with a ball-tip probe and then using 2 and 3 Kerrisons. We then cleared the epi dural space with the Vieyra dural separator and gently slid the lid into place. There was exuberant scar at the superior edge, requiring an additional laminectomy. The incision was extended and a lami nectomy at T9-10 was performed in the same fashion. We were unable to enter the epidural space at th is level secondary to exuberant scar, so I had to go back down to the T10-11 and using 3 and 4 Kerris ons, completely perform a laminectomy lysing scar tissue adherent to the dura all the way up. We the n again attempted to lay the lead in place, and again there was scar tissue at the superior edge, and so we had to extend this laminectomy all the way up until there was space to get the lead into place . We placed the lead, and under x-ray it appeared to be midline. Patient has scoliosis, so it is ve ry difficult to count ribs and lumbar spine. However, placed the lead where we believed to be the ap propriate space counting up from the sacrum again, and at the appropriate midline. Secured the lead with the cranial fixation plates and 5 mm screws, then copiously irrigated with meticulous hemostasis obtained with Floseal, copiously irrigated with over a liter of gentamicin saline, closed the fascia with 0 Vicryl pop-offs. We then created an incision the level of the pocket with a 10 blade, and wi blunt dissection created a subcutaneous pocket at the appropriate depth, tunneled from the pocket up to the thoracic spine, bringing the leads down and out, discarding the straw, leaving a strain-rel ief coil at the thoracic spine and placed the leads into the generator, checked impedances; all imped ances were good. Locked them down, rechecked impedances; all impedances were good. Coiled the remai nder of the wires posterior to the generator, sutured the generator to the fascia with 2-0 silk stitc h at 2 positions, copiously irrigated each incision with over a liter of gentamicin-infused saline. Closed the subcutaneous layer with 2-0 Vicryl pop-offs. The skin at the thoracic spine was closed wi 3-0 running nylon at the hip. The cutaneous layer was closed with 3-0 Vicryl pop-offs and a 4-0 r unning Monocryl and Steri-Strips. The wound at the thoracic spine was dressed with Xeroform gauze an d Tegaderm. The wound at the hip was dressed with gauze and a Tegaderm. Final x-ray was taken for d emarcation purposes. Patient tolerated the procedure well. Neuro monitoring was stable throughout. FLUIDS: Five hundred fifty mL crystalloid. URINE OUTPUT: None. DRAINS: None. COMPLICATIONS: None. /[id number]/MODL
[2017-12-17 15:14] VITALS: TEMP 97.5
[2017-12-17] MEDS ORDERED: METHOCARBAMOL 750 MG TAB ONE (15:47)
[2017-12-17 15:51] VITALS: BP 150/99; O2SAT 98
[2017-12-17 16:57] VITALS: PULSE 97; RESP 14
== END 2017-12-17 16:57 | disposition home or self-care (01) ==
LOC: FSGY 09:32
PROVIDERS: ATTEND Neurological Surgery
PROC: 00HU0MZ Insertion of Neurostimulator Lead into Spinal Canal, Open Approach (ICD-10-PCS; principal; 2017-12-17 11:00)
PROC: 0JH70CZ Insertion of Single Array Rechargeable Stimulator Generator into Back Subcutaneous Tissue and Fascia, Open Approach (ICD-10-PCS; principal; 2017-12-17 11:00)
DX: G89.4 Chronic pain syndrome (principal); M96.1 Postlaminectomy syndrome, not elsewhere classified
CPT/HCPCS: C1713; C1778; C1787; C1822; J0171; J0690; J2250; J2370; J2405; J2704; J3010

== ENCOUNTER → 2018-02-24 | Outpatient (CLI) | payer OTHER | LOC: FIMAGING 17:36 | DX: G89.4 Chronic pain syndrome (principal); Z79.891 Long term (current) use of opiate analgesic; M96.1 Postlaminectomy syndrome, not elsewhere classified ==

== ENCOUNTER 2019-03-07 20:47 | Inpatient (IN) | payer OTHER | END 2019-03-12 15:52 | LOC: F3E 03-09 12:44 → F2N 23:43 ==